=== PATIENT | female | born 1950 | race Hispanic/Latino ===

== ENCOUNTER 2018-12-08 22:00 | Emergency (ER) | payer MEDICARE ==
[2018-12-08 22:41] LABS: BASOPHILS % (AUTO) 0.7 % (0.0-5.0); EOSINOPHILS % (AUTO) 1.1 % (0.0-8.0); LYMPHOCYTES % (AUTO) 17.5 % (21.0-51.0); MEAN CORPUSCULAR HEMOGLOBIN 27.7 pg (27.0-33.0); MEAN CORPUSCULAR HGB CONC 33.3 g/dL (32.0-36.0); MEAN CORPUSCULAR VOLUME 83.3 fL (79-99); MONOCYTES % (AUTO) 9.3 % (3.0-13.0); NEUTROPHILS % (AUTO) 71.4 % (40.0-77.0); PLATELET COUNT (AUTO) 289 K/uL (130-400); RED BLOOD CELL COUNT(AUTO) 4.21 MIL/uL (4.00-5.50); RED CELL DISTRIBUTION WIDTH 13.8 % (11.0-15.5); WHITE BLOOD COUNT (AUTO) 13.4 K/uL (4.8-10.8)
[2018-12-08 22:45] LABS: APPEARANCE,URINE Clear (CLEAR); BILIRUBIN,URINE Negative (NEGATIVE); COLOR,URINE Yellow (YELLOW); GLUCOSE, URINE (UA) Negative (NEGATIVE); KETONES,URINE 15 mg/dL (NEGATIVE); LEUKOCYTE ESTERASE ,URINE Small (NEGATIVE); NITRATE,URINE Negative (NEGATIVE); OCCULT BLOOD,URINE Negative (NEGATIVE); PH,URINE 5.5 (5.0-8.0); PROTEIN,URINE Negative (NEGATIVE)
[2018-12-08 22:53] LABS: POTASSIUM 3.5 mmol/L (3.5-5.1)
[2018-12-08 22:57] LABS: BILIRUBIN,TOTAL 0.7 mg/dL (0.2-1.0); TOTAL PROTEIN, SERUM 8.3 g/dL (6.0-8.3)
[2018-12-08 23:03] LABS: BACTERIA,URINE None Seen /HPF (None Seen); RBC,URINE 0-1 /HPF (0-1); SQUAMOUS EPITHELIAL CELL,UR 0-2 /HPF (0-2); WBC,URINE 0-1 /HPF (0-1)
[2018-12-08] MEDS ORDERED: ONDANSETRON HCL 4 MG/2 ML VIAL ONE (23:37)
[2018-12-08] MEDS ORDERED: MORPHINE SULFATE 4 MG/1ML SYG ONE (23:38)
[2018-12-08] MEDS ORDERED: SODIUM CHLORIDE 0.9% 1000ML 1,000 ML IV ONE (23:38)
[2018-12-09] MEDS ORDERED: IOHEXOL-350 75 ML VIAL IV ONE (00:45)
== END 2018-12-09 02:00 | disposition home or self-care (01) ==
LOC: EDH 22:00
DX: K59.00 Constipation, unspecified (principal); E11.9 Type 2 diabetes mellitus without complications; I10 Essential (primary) hypertension; E78.00 Pure hypercholesterolemia, unspecified; Z98.890 Other specified postprocedural states
CPT/HCPCS: 36415; 74177; 80053; 81001; 82550; 83690; 84484; 85025; 93005; 96374; 96375; 99285; J2270; J2405; J7030; Q9967

== ENCOUNTER 2018-12-22 15:42 | Inpatient (IN) | payer OTHER, MEDICARE ==
[~2018-12-22] VITALS: Ht 152.4 cm; Wt 55.7 kg
[2018-12-22 16:23] LABS: BILIRUBIN,URINE Negative (NEGATIVE); COLOR,URINE Yellow (YELLOW); GLUCOSE, URINE (UA) Negative (NEGATIVE); KETONES,URINE 15 mg/dL (NEGATIVE); LEUKOCYTE ESTERASE ,URINE Trace (NEGATIVE); NITRATE,URINE Negative (NEGATIVE); OCCULT BLOOD,URINE Negative (NEGATIVE); PROTEIN,URINE Negative (NEGATIVE); UROBILINOGEN,URINE 0.2 mg/dL (0.2-1.0)
[2018-12-22 16:31] LABS: BASOPHILS % (AUTO) 0.5 % (0.0-5.0); EOSINOPHILS % (AUTO) 1.5 % (0.0-8.0); HEMATOCRIT 35.3 % (36-48); LYMPHOCYTES % (AUTO) 20.2 % (21.0-51.0); MEAN CORPUSCULAR HEMOGLOBIN 28.7 pg (27.0-33.0); MEAN CORPUSCULAR HGB CONC 35.1 g/dL (32.0-36.0); MONOCYTES % (AUTO) 8.1 % (3.0-13.0); NEUTROPHILS % (AUTO) 69.7 % (40.0-77.0); PLATELET COUNT (AUTO) 270 K/uL (130-400); RED BLOOD CELL COUNT(AUTO) 4.31 MIL/uL (4.00-5.50); WHITE BLOOD COUNT (AUTO) 7.2 K/uL (4.8-10.8)
[2018-12-22 16:32] LABS: APPEARANCE,URINE SLIGHTLY CLOUDY (CLEAR)
[2018-12-22 16:33] LABS: BACTERIA,URINE Few /HPF (None Seen); RBC,URINE 0-1 /HPF (0-1)
[2018-12-22 16:34] LABS: MUCUS,URINE Rare LPF (None Seen); SQUAMOUS EPITHELIAL CELL,UR Rare /HPF (0-2); TRANSITIONAL EPI CELLS,URINE Few /HPF (None Seen)
[2018-12-22 16:41] LABS: INR 1.05 (0.85-1.15); PARTIAL THROMBOPLASTIN TIME 28.4 SEC (26.3-35.5)
[2018-12-22 16:43] LABS: AMYLASE 126 U/L (25-115); CREATINE KINASE, TOTAL 62 U/L (21-232); LIPASE 766 U/L (114-286)
[2018-12-22 17:39] LABS: POTASSIUM 4.1 mmol/L (3.5-5.1)
[2018-12-22 17:43] LABS: ALBUMIN 4.1 g/dL (3.5-5.0); BILIRUBIN,TOTAL 0.6 mg/dL (0.2-1.0); TOTAL PROTEIN, SERUM 7.7 g/dL (6.0-8.3)
[2018-12-22] MEDS ORDERED: KETOROLAC TROMETHAMINE 15MG/ML ONE (18:02)
[2018-12-22] MEDS ORDERED: CEFTRIAXONE SODIUM 1 GM ONE (20:27)
[2018-12-22] MEDS ORDERED: FAMOTIDINE/PF 20 MG/2 ML VIAL IV ONE (20:28)
[2018-12-22] MEDS ORDERED: ZOSYN 3.375GM+NS 50ML 50 ML IV ONE (21:43)
[2018-12-22] MEDS ORDERED: LACTATED RINGERS 1000ML 1,000 ML IV ONE (21:43)
[2018-12-22] MEDS ORDERED: ONDANSETRON HCL 4 MG/2 ML VIAL IVP PRN (21:45)
[2018-12-22] MEDS ORDERED: HYDRALAZINE HCL 20 MG/ML VIAL IV PRN (21:45)
[2018-12-22] MEDS ORDERED: MORPHINE SULFATE 4 MG/1ML SYG IVP PRN (21:45)
[2018-12-22] MEDS: LACTATED RINGERS 1000ML 1,000 ML IV SCH (21:45)
[2018-12-22] MEDS: ZOSYN 3.375GM+NS 50ML 50 ML IV SCH (21:45)
[2018-12-22 23:16] VITALS: BP 137/69
[2018-12-22] MEDS ORDERED: METF-444 PO (23:41)
[2018-12-22] MEDS ORDERED: POLY1GRA MC (23:41)
[2018-12-22] MEDS ORDERED: CIPR-278 PO (23:41)
[2018-12-22] MEDS ORDERED: SIMV-43 PO (23:41)
[2018-12-22] MEDS ORDERED: AMLO5TAB9 PO (23:41)
[2018-12-22] MEDS ORDERED: ASPI-555 PO (23:41)
[2018-12-22] MEDS ORDERED: LISI1TAB29 PO (23:41)
[2018-12-22] MEDS ORDERED: DOCU-272 PO (23:41)
[2018-12-23 03:19] VITALS: BP 114/63
[2018-12-23] MEDS: ZOSYN 3.375GM+NS 50ML 50 ML IV SCH ×3 (05:42→20:18)
[2018-12-23 08:00] VITALS: BP 120/63
[2018-12-23] MEDS ORDERED: HYDRALAZINE HCL 20 MG/ML VIAL IV PRN (08:15)
[2018-12-23] MEDS: PANTOPRAZOLE SODIUM 40 MG TABLET.DR PO SCH (09:52)
--- NOTE | 2018-12-23 11:15 | NUR ---
HOME MEDICATIONS PENDING TO BE RECONCILE ERICKSON MENON MUSIC THEORY PROFESSOR MADE AWARE OF PENDING HOME MEDICATIONS TO BE RECONCILED, PER MUSIC THEORY PROFESSOR, PATIENT IS NPO AND WILL NOT BE TAKING MEDICATIONS AT THE MOMENT.
--- NOTE | 2018-12-23 11:25 | NUR ---
ATTEMPTED DR. JEFFERSON CONSULT DR. JEFFERSON OFFICE CALLED TO NOTIFY OF NEW CONSULT. PER AIR PLANT ENGINEER, OK TO CALL TO NOTIFY DR. JEFFERSON OF CONSULT. NO ANSWER, MESSAGE LEFT. WILL TRY CALL AGAIN LATER. PENDING DR. JEFFERSON CONSULT FOR LLQ PAIN AND REPORT OF US AND CT OF ABD/PELVIS. PT HAS NO PAIN AND IS STAINING SHE FEELS HUNGER. WILL MONITOR CLOSELY.
[2018-12-23] MEDS: LACTATED RINGERS 1000ML 1,000 ML IV SCH ×2 (11:33→20:19)
[2018-12-23] MEDS ORDERED: DEXTROSE 50%-WATER 50 ML DISP.SYRIN IV PRN (11:45)
[2018-12-23] MEDS ORDERED: GLUCAGON 1MG KIT 1 MG ML IM PRN (11:45)
[2018-12-23 11:59] VITALS: BP 120/49
[2018-12-23] MEDS: INSULIN HUMULIN R 100 UNIT/ML 3ML SQ SCH ×3 (12:00→20:15)
--- NOTE | 2018-12-23 12:31 | NUR ---
RD NOTIFICATION DX: CHOLELITHIASIS, ACUTE PANCREATITIS, UTI. DIET: NPO. LBM: 12/22. SKIN INTACT, NO EDEMA. PT SYMPTOMS ARE IMPROVING. PT NO LONGER EXPERIENCING ABDOMINAL PAIN OR NAUSEA. PT EATING POOR 2-3 WEEKS PRIOR TO ADMISSION DUE TO PAIN AND NAUSEA. PT CLAIMS TO BE IMPROVING [id number]. RD PROVIDED LOW FAT DIET AND PANCREATITIS NUTRITION EDUCATION DURING TIME OF VISIT. RD RECOMMENDS TO ADVANCE DIET TOLERATED WHEN MEDICALLY FEASIBLE TO CLEAR LIQUIDS, FULL. LASTLY, ADVANCE TO LOW FAT/ GI SOFT BLAND DIET. RD PROVIDED LOW FAT AND PANCREATITIS NUTRITION AND DIET EDUCATION IN [place] DURING VISIT. PT AND FAMILY ASKED QUESTIONS. PT AND FAMILY VERBALIZED UNDERSTANDING. RD WILL CONTINUE TO MONITOR AND FOLLOW UP NEEDED. THANK YOU. Addendum: 12/23/18 at [address] Amended: Links added.
--- NOTE | 2018-12-23 12:32 | NUR ---
DIET EDUCATION RD PROVIDED LOW FAT AND PANCREATITIS NUTRITION AND DIET EDUCATION IN [place] DURING VISIT. PT AND FAMILY ASKED QUESTIONS. PT AND FAMILY VERBALIZED UNDERSTANDING. Addendum: 12/23/18 at [address] Amended: Links added.
--- NOTE | 2018-12-23 13:42 | NUR ---
DCP CM met with pt discussed dc plans. Pt is independent prior to admission, lives at home with spouse. Denies any equipments/services. Pt feels safe to go back home, still drives, spouse and children able to assist with transportation and needs as necessary. DC plan to home once stable. CM to cont to follow up. Addendum: 12/23/18 at 1343 by SHO ALEJANDRO LVN CM Amended: Links added.
[2018-12-23 16:00] VITALS: BP 139/67
[2018-12-23 19:30] VITALS: BP 136/97
[2018-12-23 23:00] VITALS: BP 112/61
[2018-12-24] MEDS: LACTATED RINGERS 1000ML 1,000 ML IV SCH ×4 (00:33→21:18)
[2018-12-24 04:00] VITALS: BP 132/73
[2018-12-24 04:32] LABS: HEMATOCRIT 32.3 % (36-48); MEAN CORPUSCULAR HEMOGLOBIN 28.8 pg (27.0-33.0); MEAN CORPUSCULAR HGB CONC 34.7 g/dL (32.0-36.0); PLATELET COUNT (AUTO) 209 K/uL (130-400); RED BLOOD CELL COUNT(AUTO) 3.89 MIL/uL (4.00-5.50); RED CELL DISTRIBUTION WIDTH 14.4 % (11.0-15.5); WHITE BLOOD COUNT (AUTO) 4.7 K/uL (4.8-10.8)
[2018-12-24 04:45] LABS: BILIRUBIN,TOTAL 0.4 mg/dL (0.2-1.0); CREATININE 0.9 mg/dL (0.5-1.5); POTASSIUM 3.8 mmol/L (3.5-5.1); TOTAL PROTEIN, SERUM 6.6 g/dL (6.0-8.3)
[2018-12-24] MEDS: ZOSYN 3.375GM+NS 50ML 50 ML IV SCH ×3 (05:00→21:17)
[2018-12-24] MEDS: INSULIN HUMULIN R 100 UNIT/ML 3ML SQ SCH ×4 (06:00→23:57)
[2018-12-24] MEDS: PANTOPRAZOLE SODIUM 40 MG TABLET.DR PO SCH (06:33)
[2018-12-24 07:52] VITALS: BP 130/55
[2018-12-24 11:39] VITALS: BP 127/69
[2018-12-24 16:00] VITALS: BP 147/72
[2018-12-24 19:31] VITALS: BP 133/73
[2018-12-24] MEDS: ASPIRIN 81 MG EC TAB PO SCH (20:26)
[2018-12-24] MEDS: METFORMIN HCL 500 MG TABLET PO SCH (21:00)
[2018-12-24] MEDS: SIMVASTATIN 20 MG TABLET PO SCH (21:17)
[2018-12-24] MEDS: DOCUSATE SODIUM 100 MG CAP PO SCH (21:17)
[2018-12-24 23:30] VITALS: BP 124/71
[2018-12-25] VITALS (26 sets, daily range): BP systolic 107–159; BP diastolic 56–75
[2018-12-25 04:26] LABS: HEMATOCRIT 32.3 % (36-48); MEAN CORPUSCULAR HEMOGLOBIN 28.9 pg (27.0-33.0); MEAN CORPUSCULAR HGB CONC 34.7 g/dL (32.0-36.0); MEAN CORPUSCULAR VOLUME 83.4 fL (79-99); PLATELET COUNT (AUTO) 218 K/uL (130-400); RED BLOOD CELL COUNT(AUTO) 3.88 MIL/uL (4.00-5.50); RED CELL DISTRIBUTION WIDTH 14.3 % (11.0-15.5); WHITE BLOOD COUNT (AUTO) 5.3 K/uL (4.8-10.8)
[2018-12-25 04:35] LABS: CREATININE 0.7 mg/dL (0.5-1.5); POTASSIUM 3.5 mmol/L (3.5-5.1)
[2018-12-25] MEDS: INSULIN HUMULIN R 100 UNIT/ML 3ML SQ SCH ×4 (05:35→20:29)
[2018-12-25] MEDS: LACTATED RINGERS 1000ML 1,000 ML IV SCH ×5 (05:35→20:29)
[2018-12-25] MEDS: ZOSYN 3.375GM+NS 50ML 50 ML IV SCH ×3 (05:36→21:48)
[2018-12-25] MEDS: PANTOPRAZOLE SODIUM 40 MG TABLET.DR PO SCH (05:36)
[2018-12-25] MEDS ORDERED: LIDOCAINE PF 2% 5ML ABBOJECT ONE (08:03)
[2018-12-25] MEDS ORDERED: FENTANYL CITRATE PF 50 MCG/1 ML 2ML VIAL ONE (08:04)
[2018-12-25] MEDS ORDERED: PROPOFOL 10 MG/ML 20ML VIAL IV ONE (08:04)
[2018-12-25] MEDS ORDERED: MIDAZOLAM HCL 1 MG/ML 2ML VIAL ONE (08:04)
[2018-12-25] MEDS ORDERED: NEOSTIGMINE 5MG/5ML SYR IV ONE (08:06)
[2018-12-25] MEDS ORDERED: GLYCOPYRROLATE 1 MG/5 ML SYRINGE ONE (08:06)
[2018-12-25] MEDS ORDERED: ROCURONIUM 10MG/1ML SYR 10 MG/ML ML ONE (08:06)
[2018-12-25] MEDS ORDERED: EPHEDRINE SULFATE 50 MG/ML AMPULE ONE (08:28)
[2018-12-25] MEDS ORDERED: BUPIVACAINE/PF 0.5% 10ML VIAL ONE (08:29)
[2018-12-25] MEDS ORDERED: ONDANSETRON HCL 4 MG/2 ML VIAL ONE (08:46)
[2018-12-25] MEDS ORDERED: MEPERIDINE-PF 25 MG/ML SYG ONE ×2 (09:13→09:23)
[2018-12-25] MEDS: AMLODIPINE BESYLATE 5 MG TAB PO SCH (10:31)
[2018-12-25] MEDS: METFORMIN HCL 500 MG TABLET PO SCH ×2 (10:31→20:28)
[2018-12-25] MEDS: HYDROCHLOROTHIAZIDE 25 MG TABLET PO SCH (10:31)
[2018-12-25] MEDS: DOCUSATE SODIUM 100 MG CAP PO SCH ×2 (10:31→20:28)
[2018-12-25] MEDS: POLYETHYLENE GLYCOL 3350 17 GM POWD.PACK PO SCH ×3 (10:33→20:33)
[2018-12-25] MEDS: LISINOPRIL 20 MG TABLET PO SCH (10:33)
[2018-12-25] MEDS: ASPIRIN 81 MG EC TAB PO SCH (20:28)
[2018-12-25] MEDS: SIMVASTATIN 20 MG TABLET PO SCH (20:28)
[2018-12-26 04:17] VITALS: BP 108/60
[2018-12-26 05:12] LABS: HEMATOCRIT 31.9 % (36-48); MEAN CORPUSCULAR HGB CONC 34.7 g/dL (32.0-36.0); MEAN CORPUSCULAR VOLUME 83.4 fL (79-99); PLATELET COUNT (AUTO) 216 K/uL (130-400); RED BLOOD CELL COUNT(AUTO) 3.82 MIL/uL (4.00-5.50); RED CELL DISTRIBUTION WIDTH 14.5 % (11.0-15.5); WHITE BLOOD COUNT (AUTO) 6.8 K/uL (4.8-10.8)
[2018-12-26 05:34] LABS: CREATININE 0.8 mg/dL (0.5-1.5); POTASSIUM 3.3 mmol/L (3.5-5.1)
[2018-12-26] MEDS: ZOSYN 3.375GM+NS 50ML 50 ML IV SCH ×2 (05:52→14:55)
[2018-12-26] MEDS: INSULIN HUMULIN R 100 UNIT/ML 3ML SQ SCH ×3 (05:52→16:30)
[2018-12-26] MEDS: PANTOPRAZOLE SODIUM 40 MG TABLET.DR PO SCH (06:34)
[2018-12-26 08:08] VITALS: BP 119/58
[2018-12-26] MEDS: HYDROCHLOROTHIAZIDE 25 MG TABLET PO SCH (09:00)
[2018-12-26] MEDS: LISINOPRIL 20 MG TABLET PO SCH (09:00)
[2018-12-26] MEDS: AMLODIPINE BESYLATE 5 MG TAB PO SCH (09:00)
[2018-12-26] MEDS: POLYETHYLENE GLYCOL 3350 17 GM POWD.PACK PO SCH (09:10)
[2018-12-26] MEDS: METFORMIN HCL 500 MG TABLET PO SCH (09:10)
[2018-12-26] MEDS: DOCUSATE SODIUM 100 MG CAP PO SCH (09:10)
[2018-12-26] MEDS: LACTATED RINGERS 1000ML 1,000 ML IV SCH (11:05)
[2018-12-26 11:45] VITALS: BP 130/64
--- NOTE | 2018-12-26 15:26 | NUR ---
DCP REAMINS TO HOME, DISCUSSED WITH FLOYD GRIFFIN, TOLERATING DIET, EXPECTED DISCHARGE TODAY
[2018-12-26] MEDS ORDERED: POTASSIUM CHLORIDE 20 MEQ ERTAB PO PRN (15:45)
[2018-12-26] MEDS ORDERED: POTASSIUM CHLORIDE 20MEQ/100ML 100 ML IV PRN (15:45)
[2018-12-26] MEDS ORDERED: LIDOCAINE HCL-MPF 1% 2ML VIAL IV PRN (15:45)
[2018-12-26] MEDS ORDERED: POTASSIUM CHLORIDE 10% ELIXIR 20 MEQ/15 ML UDCUP PO PRN (15:45)
[2018-12-26 16:58] VITALS: BP 129/66
--- NOTE | 2018-12-26 17:22 | NUR ---
PAGED DR. HOWARD PAGED PRIMARY MD TO REPORT THAT I RECEIVED OKAY TO DISCHARGE PATIENT FROM SURGEON (DR. JEFFERSON) STANDPOINT. DR. HOWARD HAS NOT ROUNDED ON PATIENT YET TODAY.
--- NOTE | 2018-12-26 18:30 | NUR ---
DR. HOWARD MD HERE TO SEE PATIENT. INFORMED MD THAT DR. JEFFERSON HAS CLEARED PATIENT FOR DISCHARGE TODAY. ALSO INFORMED MD THAT PATIENTS POTASSIUM 3.3 AND POTASSIUM 20 MEQ PO ADMINISTERED SO FAR, DR. HOWARD REPLIED THAT WAS OKAY. SPOKE TO PATIENT AND VERBAL ORDERS GIVEN TO ME TO DISCHARGE PATIENT HOME TODAY.
--- NOTE | 2018-12-26 19:00 | NUR ---
DISCHARGE DISCHARGE TEACHING PROVIDED TO PATIENT REGARDING DISCHARGE INSTRUCTIONS (LOW FAT DIET AFTER DISCHARGE, CONTINUE HOME MEDICATIONS). INFORMED PATIENT THAT FOLLOW-UP APPOINTMENT WITH DR. JEFFERSON AND PRIMARY MD DR. Yenny PETER ARE BOTH PENDING TO BE SCHEDULED. PROVIDED DR. JEFFERSON OFFICE PHONE NUMBER AND PATIENT INSTRUCTED TO CALL DR. JEFFERSON'S OFFICE TOMORROW MORNING TO SCHEDULE F/U APPT. PATIENT REPORTS SHE ALREADY HAS F/U SCHEDULED WITH PRIMARY MD DR. PETER THIS Wednesday12/28/18. PROVIDED TEACHING REGARDING POST-OP [facility] CARE AT HOME. PATIENT VERBALIZED UNDERSTANDING OF DISCHARGE TEACHING. REMOVED 20G IV FROM RIGHT FA, CATHETER TIP INTACT. PATIENT TO BE DRIVEN HOME BY FAMILY.
== END 2018-12-26 19:25 | disposition home or self-care (01) | DRG 417 ==
LOC: EDH 15:42 → OBSVTOIN 21:00 → EDHIP 21:00 → 4AH 22:39
PROVIDERS: ADMIT Internal Medicine; ATTEND Internal Medicine
PROC: 0FT44ZZ Resection of Gallbladder, Percutaneous Endoscopic Approach (ICD-10-PCS; principal; 2018-12-25 08:30)
DX: K80.00 Calculus of gallbladder with acute cholecystitis without obstruction (principal); K85.90 Acute pancreatitis without necrosis or infection, unspecified; N39.0 Urinary tract infection, site not specified; E87.1 Hypo-osmolality and hyponatremia; E87.8 Other disorders of electrolyte and fluid balance, not elsewhere classified; E86.0 Dehydration; E11.9 Type 2 diabetes mellitus without complications; E78.5 Hyperlipidemia, unspecified; I10 Essential (primary) hypertension; K59.00 Constipation, unspecified; M19.90 Unspecified osteoarthritis, unspecified site; Z79.899 Other long term (current) drug therapy
CPT/HCPCS: 36415; 74018; 74176; 74181; 76705; 80048; 80053; 81001; 82150; 82550; 82948; 83690; 84484; 85025; 85027; 85610; 85730; 87040; 87088; 88304; 93005; 97039; G0378; J0696; J1885; J2001; J2175; J2250; J2270; J2405; J2543; J2704; J2710; J3010; J3490; J7030; J7120

== ENCOUNTER → 2021-01-16 | Outpatient (CLI) | payer OTHER, MEDICARE ==
[~2021-01-16] MED LIST: AMLO-257 PO; ASPI-556 PO; CIPR-278 PO; DOCU-280 PO; LISI1TAB29 PO; METF-444 PO; POLY1GRA MC; SIMV-43 PO
== END | disposition home or self-care (01) ==
LOC: RAH 11:40
PROVIDERS: ATTEND Obstetrics & Gynecology
DX: D25.9 Leiomyoma of uterus, unspecified (principal)
CPT/HCPCS: 76856